=== PATIENT | female | born 1990 | race Hispanic/Latino ===

== ENCOUNTER 2017-11-13 12:20 | Day surgery (SDC) | payer MEDICAID ==
[~2017-11-13 12:20] MED LIST: ANCEF/STERILE WATER 2 GM/20 ML IV NR
--- NOTE | 2017-11-13 13:28 | Anesthesia Consultation ---
Anesthesia Consult and Med Hx Date of service: 11/13/17 - Airway Anesthetic Teeth Evaluation: Good ROM Head & Neck: Adequate Mental/Hyoid Distance: Adequate Mallampati Class: Class I Intubation Access Assessment: Good - Pulmonary Exam CTA: Yes - Cardiac Exam Cardiac Exam: RRR - Pre-Operative Health Status ASA Pre-Surgery Classification: ASA1 Proposed Anesthetic Plan: General - Pre-Anesthesia Comment Pre-Anesthesia Comments: Pt is 3 month post - Pulmonary Hx Smoking: No Hx Sleep Apnea: No (YASH PRE SCREEN NEGATIVE) - Cardiovascular System Hx Hypertension: No - Central Nervous System Hx Seizures: No CVA: No - Endocrine Hx Renal Disease: No (blockage in lt ureter) - Other Systems Hx Cancer: No - Additional Comments Anesthesia Medical History Comments: Pt denies of any familial anesthesia complication
--- NOTE | 2017-11-13 13:28 | Anesthesia Day of Surgery ---
Anesthesia Day of Surgery - Day of Surgery Patient Examined: Yes Patient H&P Reviewed: Yes Patient is NPO: Yes
[2017-11-13] MEDS ORDERED: PEPCID PO NR (14:00)
[2017-11-13] MEDS ORDERED: TRANSDERM-SCOP TD NR (14:00)
[2017-11-13] MEDS ORDERED: LACTATED RINGERS 1,000 ML IV SCH (14:00)
[2017-11-13] MEDS ORDERED: VERSED IV NR (14:00)
[2017-11-13] MEDS ORDERED: PERCOCET 5/325 PO PRN (14:16)
[2017-11-13] MEDS ORDERED: ZOFRAN IV PRN (14:16)
[2017-11-13] MEDS ORDERED: MORPHINE IV PRN (14:16)
[2017-11-13] MEDS ORDERED: SUBLIMAZE ONE (14:28)
[2017-11-13] MEDS ORDERED: DIPRIVAN 10 MG/ML IV ONE (14:28)
[2017-11-13] MEDS ORDERED: XYLOCAINE MPF 2% ONE (14:28)
[2017-11-13] MEDS ORDERED: ZEMURON IV ONE (15:55)
--- NOTE | 2017-11-13 16:02 | Short Stay Summary ---
Short Stay Documentation Date of service: 11/13/17 - History H&P: obtained from office - Allergies and Medications Current Medications: Allergies No Known Allergies Allergy (Verified 11/06/17 15:20) Home Medications Medication Instructions Recorded Confirmed Last Taken Type Pnv Plus Multivit Tab 1 tab PO DAILY 11/06/17 11/06/17 Unknown History Active Medications Cefazolin Sodium (Ancef/Sterile Water 2 Gm/20 Ml) 2 gm IV PREOP NR Stop: 11/13/17 23:59 Famotidine (Pepcid) 20 mg PO PREOP NR Stop: 11/13/17 23:59 Last Admin: 11/13/17 14:12 Dose: 20 mg Lactated Ringer's (Lactated Ringers) 1,000 mls @ 100 mls/hr IV DIRECT RAPHAEL Last Admin: 11/13/17 14:12 Dose: 100 mls/hr Midazolam HCl (Versed) 2 mg IV PREOP NR Stop: 11/13/17 23:59 Last Admin: 11/13/17 14:13 Dose: 2 mg Morphine Sulfate (Morphine) 2 mg IV Q10MIN PRN PRN Reason: Pain, Moderate (4-6) Ondansetron HCl (Zofran) 4 mg IV ONCE PRN PRN Reason: Nausea And Vomiting Oxycodone/Acetaminophen (Percocet 5/325) 1 tab PO ONCE PRN PRN Reason: Pain, Moderate (4-6) Scopolamine (Transderm-Scop) 1 each TD PREOP NR Stop: 11/13/17 23:59 Last Admin: 11/13/17 14:12 Dose: 1 each - Brief post op/procedure progress note Date of procedure: 11/13/17 Pre-op diagnosis: left ureteral stricture Post-op diagnosis: same Procedure: cysto, rpg, left ureteroscopy, balloon prox stricture, stent (6x24) short string Anesthesia: GETA Surgeon: KAMILLE HICKMAN Estimated blood loss: none Condition: stable - Hospital course Hospital course: yanero,marino,& brochure on chart - Disposition Condition at discharge: Stable Disposition: DC-01 TO HOME OR SELFCARE Short Stay Discharge Plan Follow up with: ARJUN GARDNER MD [Primary Care Provider] - 7 Days
[2017-11-13] MEDS ORDERED: DECADRON ONE (16:07)
--- NOTE | 2017-11-13 16:23 | Post Anesthesia Evaluation ---
- Post Anesthesia Evaluation Patient Participated: Yes Airway Patent: Yes Stable Respiratory Function: Yes Temp > 96.8F: Yes Pain Manageable: Yes Adequeate Hydration: Yes Anesthesia Complications: No
[2017-11-13 17:35] VITALS: BP 118/67
--- NOTE | 2017-11-13 17:57 | Operative Report ---
PREOPERATIVE DIAGNOSES: Left hydronephrosis, right ureteropelvic junction obstruction (left proximal ureteral stricture). POSTOPERATIVE DIAGNOSES: Left hydronephrosis, right ureteropelvic junction obstruction (left proximal ureteral stricture). PROCEDURES: Cystoscopy, bilateral retrograde pyelograms, left ureteroscopy, left balloon dilatation of stricture, double-J stent placement (6 Dominican 24 cm with a short internal string). SURGEON: Gigi Steele MD ANESTHESIA: General. ESTIMATED BLOOD LOSS: Minimal. FLUIDS: Crystalloid. COMPLICATIONS: No complications. INDICATIONS: This 27-year-old female who was actually seen during , she with for hydronephrosis. She was seen afterwards, we did CT of abdomen and pelvis, found to have significant right hydronephrosis, appeared to be chronic in nature. Nuclear scan consistent with 46% function on the left, 54% function on the right. We discussed options regarding observation, open repair, and balloon dilatation. She agreed to proceed with balloon. Risks, benefits, and complications were explained. The patient agreed to proceed with surgical intervention. DESCRIPTION OF PROCEDURE: The patient was taken to the operative suite, placed in a supine position. After adequate general anesthesia, placed in a dorsal lithotomy position, prepped and draped in a sterile fashion. Pancystourethroscopy was performed with a 22 Dominican Storz cystoscope. No bladder pathology. Both ureteral orifices in normal position. Bilateral retrograde pyelograms were obtained with an 8 Dominican Abhay catheter and 8 mL of contrast. No filling defects or obstruction on the right. Left side, obvious hydronephrosis, normal caliber ureter. Ureteroscopy up to the renal pelvis, could seems there was a tight stricture, could not advance the scope. Despite a wire, 18-Dominican 4 cm balloon was advanced over the wire. It was ballooned in the area of concern for 3 minutes. A 6 Dominican 24 cm double-J stent was then placed. Fluoroscopy confirmed adequate position. She also had an IUD noted in the pelvis. Her bladder was drained. She was extubated and taken to recovery room. She will keep the stent for 3-4 weeks. She has Cosby and Cipro. JOB# [id number] C/NTS
--- NOTE | 2017-11-14 08:00 | Fluoroscopy Report ---
Retrograde pyelogram: Left ureteral stricture. The initial image demonstrates an IUD. Injection of contrast into the right ureter demonstrates an unremarkable ureter and intrarenal collecting system. Injection on the left side demonstrates a normal-appearing ureter with tight narrowing at the UPJ. The intrarenal collecting system is opacified and grossly dilated with no filling defect noted. A ureteral stent and wires were passed into the collecting system and an internal stent left in place. Impression: Left UPJ stenosis.
--- NOTE | 2017-11-14 08:03 | Fluoroscopy Report ---
Ureteral dilatation: Left ureteral stricture. 2 images included. A ureteral dilatation balloon was placed at the left UPJ and dilated to its full diameter. No other information obtained.
== END 2017-11-13 12:21 | disposition home or self-care (01) ==
LOC: OR 12:20
PROVIDERS: ATTEND Urology
DX: N13.0 Hydronephrosis with ureteropelvic junction obstruction (principal); N13.1 Hydronephrosis with ureteral stricture, not elsewhere classified; I10 Essential (primary) hypertension; Z79.899 Other long term (current) drug therapy
CPT/HCPCS: 52332; 52341; 74420; 74485; 81025; C1726; C1758; C1769; C2617; J0690; J1100; J2250; J2704; J3010; J7120; Q9967

== ENCOUNTER 2022-06-04 08:09 | Day surgery (SDC) | payer MEDICAID ==
[2022-06-04] MEDS ORDERED: LACTATED RINGERS 1,000 ML IV SCH (08:30)
[2022-06-04] MEDS ORDERED: ceFAZolin/Water 2 GM/20 ML 2 GM/20 ML SYRINGE IV NR (09:00)
[2022-06-04] MEDS ORDERED: MIDAZOLAM 2 MG/2 ML INJ ONE (09:32)
[2022-06-04] MEDS: MIDAZOLAM 2 MG/2 ML INJ IV NR ×2 (09:35→10:53)
--- NOTE | 2022-06-04 09:40 | Anesthesia Day of Surgery ---
Anesthesia Day of Surgery - Day of Surgery Patient Examined: Yes Patient H&P Reviewed: Yes Patient is NPO: Yes
--- NOTE | 2022-06-04 09:42 | Anesthesia Consultation ---
Anesthesia Consult and Med Hx Date of service: 06/04/22 - Airway Anesthetic Teeth Evaluation: Good ROM Head & Neck: Adequate Mental/Hyoid Distance: Adequate Mallampati Class: Class II Intubation Access Assessment: Good - Pre-Operative Health Status ASA Pre-Surgery Classification: ASA2 Proposed Anesthetic Plan: General - Pulmonary Hx Smoking: No Hx Sleep Apnea: No (YASH PRE SCREEN NEGATIVE) - Cardiovascular System Hx Hypertension: No - Central Nervous System Hx Seizures: No CVA: No Hx Psychiatric Problems: No - Gastrointestinal Hx Gastroesophageal Reflux Disease: No - Endocrine Hx Renal Disease: No (blockage in lt ureter; hydronephrosis) - Hematic Hx Anemia: No - Other Systems Hx Cancer: No Hx Obesity: No - Additional Comments Anesthesia Medical History Comments: Woke up anxious and emotional
[2022-06-04] MEDS ORDERED: ONDANSETRON 4 MG/2 ML INJ IV PRN (10:00)
[2022-06-04] MEDS ORDERED: HYDROmorphone 0.5 MG/0.5 ML INJ IV PRN ×2 (10:00)
[2022-06-04] MEDS ORDERED: LIDOCAINE MPF (2%) 20 MG/1 ML VIAL 5 ML ONE (11:01)
[2022-06-04] MEDS ORDERED: propofoL 200 MG/20 ML VIAL IV ONE (11:02)
[2022-06-04] MEDS ORDERED: fentaNYL 100 MCG/2 ML INJ ONE (11:03)
[2022-06-04] MEDS ORDERED: KETOROLAC 30 MG/1 ML INJ ONE (11:54)
[2022-06-04] MEDS ORDERED: ONDANSETRON 4 MG/2 ML INJ ONE (11:54)
[2022-06-04] MEDS ORDERED: dexAMETHasone 20 MG/5 ML VIAL ONE (11:54)
--- NOTE | 2022-06-04 12:02 | Short Stay Summary ---
Short Stay Documentation Date of service: 06/04/22 - History H&P: obtained from office - Allergies and Medications Current Medications: Allergies No Known Allergies Allergy (Verified 11/06/17 15:20) Home Medications Medication Instructions Recorded Confirmed Last Taken Type Multivit-Min/Iron/Folic/Lutein 1 each PO DAILY 05/30/22 06/04/22 06/03/22 History [Centrum Silver Women Tablet] Active Medications Hydromorphone HCl (Hydromorphone 0.5 Mg/0.5 Ml Inj) 0.25 mg IV Q10MIN PRN PRN Reason: Pain, Moderate (4-6) Stop: 06/04/22 18:00 Hydromorphone HCl (Hydromorphone 0.5 Mg/0.5 Ml Inj) 0.5 mg IV Q10MIN PRN PRN Reason: Pain , Severe (7-10) Stop: 06/04/22 18:00 Cefazolin Sodium (Ancef/Sterile Water 2 Gm/20 Ml) 2 gm in 20 mls @ 80 mls/hr IV PREOP NR; Protocol Stop: 06/04/22 23:59 Lactated Ringer's (Lactated Ringers) 1,000 mls @ 100 mls/hr IV DIRECT RAPHAEL Last Admin: 06/04/22 09:15 Dose: 100 mls/hr Midazolam HCl (Midazolam 2 Mg/2 Ml Inj) 2 mg IV PREOP NR Stop: 06/04/22 18:00 Last Admin: 06/04/22 10:53 Dose: 2 mg Ondansetron HCl (Ondansetron 4 Mg/2 Ml Inj) 4 mg IV ONCE PRN PRN Reason: Nausea And Vomiting Stop: 06/04/22 18:00 - Brief post op/procedure progress note Date of procedure: 06/04/22 Pre-op diagnosis: left hydro Post-op diagnosis: same Procedure: cysto, bilat rpg, balloon left ureteral stricure (upj), stent (6F x 26cm) Anesthesia: ELDA Surgeon: KAMILLE HICKMAN Condition: stable - Hospital course Hospital course: macrobid & percocet 5/325 on chart - Disposition Condition at discharge: Stable Disposition: 01 HOME / SELF CARE / HOMELESS Short Stay Discharge Plan Follow up with: PRIMARY CARE, [Primary Care Provider] - 7 Days
[2022-06-04] MEDS ORDERED: WATER FOR IRRIG STERILE 2000 ML IR ONE (12:07)
--- NOTE | 2022-06-04 12:47 | Operative Report ---
DATE OF SURGERY: 06/04/2022 PREOPERATIVE DIAGNOSIS: Left hydronephrosis (ureteropelvic junction obstruction). POSTOPERATIVE DIAGNOSIS: Left hydronephrosis (ureteropelvic junction obstruction). PROCEDURES PERFORMED: Cystoscopy, bilateral retrograde pyelograms, balloon dilatation of 2 cm UPJ obstruction, double-J stent placement (6-Canadian 26 cm with a short internal string). SURGEON: Gigi Steele M.D. ANESTHESIA: General. ESTIMATED BLOOD LOSS: Minimal. FLUIDS: Crystalloid. COMPLICATIONS: No complications. INDICATIONS: This patient is a 31-year-old female initially seen in 2017, when she was , for hydronephrosis. She underwent stent after she delivered. She was found to have left UPJ obstruction with equal kidney function on nuclear scan. She underwent balloon dilatation at that time and has done well with occasional flank pain and UTI over the years. She had a recent admission at [facility] for recurrent UTI. She was then seen in the office. Recent scans suggested equal function again; however, due to recurrent UTIs, she presents now for evaluation. DESCRIPTION OF PROCEDURE: The patient was taken to the operative suite, placed in a supine position. After adequate general anesthesia, placed in a dorsal lithotomy position, prepped and draped in a sterile fashion. Ruiz-cystourethroscopy was performed with a 22-Canadian Storz cystoscope, no acute bladder pathology. Both ureteral orifices in normal position. No tumors or stones. Bilateral retrograde pyelograms were obtained with an 8-Canadian Abhay catheter and 8 mL of contrast. No hydronephrosis on the right. She had some mild narrowing of the UPJ on the left side, obvious hydronephrosis with approximately 2 cm stricture. A 0.035 Glidewire was placed. A 4 cm balloon 15-Canadian was used to dilate the UPJ stricture under fluoroscopic guidance for approximately 5 minutes. It was deflated. A 6-Canadian 26 cm double-J stent was left indwelling. The patient tolerated the procedure well. She was extubated and taken to recovery room. She will go home on Percocet and Macrobid. TID: [id number] RECEIPT: [id number] [facility]/RIS
--- NOTE | 2022-06-04 15:04 | Fluoroscopy Report ---
Retrograde urography INDICATION: Left-sided hydronephrosis/ureteral obstruction IMPRESSION: Right retrograde ureterogram is normal. Left-sided retrograde ureterogram demonstrated mo derate hydronephrosis of the left collecting system. Status post left double-J ureteral stent. Fluoroscopy time: 1.2 minutes. Fluoroscopic images: 7. Signer Name: Albino Zambrano MD Signed: 06/04/2022 2:59 PM Workstation Name: [id number]
--- NOTE | 2022-06-04 17:07 | Post Anesthesia Evaluation ---
- Post Anesthesia Evaluation Patient Participated: Yes Airway Patent: Yes Stable Respiratory Function: Yes Nausea/Vomiting: No Temp > 96.8F: Yes Pain Manageable: Yes Adequeate Hydration: Yes Anesthesia Complications: No Block Receding Appropriately: Not Applicable Patient on Ventilator: No
[2022-06-04 20:56] VITALS: BP 118/73
== END 2022-06-04 13:50 | disposition home or self-care (01) ==
LOC: OR 08:09
PROVIDERS: ATTEND Urology
DX: N13.0 Hydronephrosis with ureteropelvic junction obstruction (principal); Z79.899 Other long term (current) drug therapy; Z87.440 Personal history of urinary (tract) infections; Z98.890 Other specified postprocedural states
CPT/HCPCS: 52332; 52342; 74420; 81025; C1726; C1758; C1769; C1889; C2617; J0690; J1100; J1170; J1885; J2250; J2405; J2704; J3010; J7120; Q9967